=== PATIENT | female | born 2000 ===

== ENCOUNTER 2021-10-19 01:09 | Emergency (ER) | payer SELFPAY ==
[~2021-10-19] VITALS: Ht 165.1 cm; Wt 100.0 kg
[2021-10-19 01:38] VITALS: TEMP 98.5
[2021-10-19 02:18] LABS: BASO % 0.4 % (0.0-2.0); EOS % 8.9 % (0.0-4.0); GRAN # 4.8 K/mm3 (1.4-6.5); GRAN % 43.1 % (42.2-75.2); HEMATOCRIT 38.3 % (37.0-47.0); HEMOGLOBIN 13.4 g/dl (12.5-16.0); LYMPH # 4.4 K/mm3 (1.2-3.4); LYMPH % 39.2 % (20.0-51.0); MEAN CELL VOLUME 87 fl (80.0-100.0); MEAN CORPUSCULAR HEMOGLOBIN 30 pg (27-31); MEAN CORPUSCULAR HGB CONC 35 g/dl (33.0-37.0); MEAN PLATELET VOLUME 11.3 fl (7.4-10.4); MONO # 0.9 K/mm3 (0.1-0.6); MONO % 8.2 % (1.7-9.3); PLATELET COUNT 263 K/mm3 (130-400); RED BLOOD COUNT 4.41 M/mm3 (4.10-5.30); REDCELL DISTRIBUTION WIDTH-CV 11.9 % (11.5-14.5)
[2021-10-19 02:39] LABS: ALANINE AMINOTRANSFERASE 61 U/L (0-55); ALBUMIN 4.1 gm/dL (3.5-5.0); ALKALINE PHOSPHATASE 73 U/L (40-150); ANION GAP 13 mmol/L (7-16); AST,SGOT 38 U/L (5-34); BILIRUBIN,TOTAL 0.3 mg/dL (0.2-1.2); BLOOD UREA NITROGEN 16 mg/dL (7-19); CALCIUM 9.8 mg/dL (8.4-10.2); CARBON DIOXIDE 21 mmol/L (22-29); CHLORIDE 104 mmol/L (98-107); CREATININE, serum 0.87 mg/dL (0.57-1.11); GLUCOSE 114 mg/dL (70-99); POTASSIUM 4.2 mmol/L (3.5-4.5); SODIUM 138 mmol/L (136-145)
[2021-10-19 02:46] LABS: HCG,QUANTITATIVE < 1 mIU/mL
[2021-10-19 03:20] VITALS: BP 135/70; PULSE 93
== END 2021-10-19 03:22 | disposition home or self-care (01) ==
LOC: COL.ER 01:09
PROVIDERS: Personal Emergency Response Attendant
DX: R55 Syncope and collapse (principal); F41.9 Anxiety disorder, unspecified; Z28.310 Unvaccinated for COVID-19
CPT/HCPCS: J2060